=== PATIENT | male | born 1985 | race Caucasian/White ===

== ENCOUNTER 2020-10-11 13:52 | Emergency (ER) | payer MEDICARE, OTHER ==
[2020-10-11] MEDS ORDERED: ERYTHROMYCIN O3.5 GM OS (15:14)
== END 2020-10-11 15:26 | disposition home or self-care (01) ==
LOC: ER1 13:52
DX: H10.212 Acute toxic conjunctivitis, left eye (principal); I10 Essential (primary) hypertension; F17.200 Nicotine dependence, unspecified, uncomplicated; J45.909 Unspecified asthma, uncomplicated; Z88.1 Allergy status to other antibiotic agents; Z88.8 Allergy status to other drugs, medicaments and biological substances
CPT/HCPCS: 99282

== ENCOUNTER → 2021-09-10 | Outpatient (CLI) | payer MEDICARE, OTHER ==
[~2021-09-10] MED LIST: ERYTHROMYCIN O3.5 GM OS
== END ==
LOC: RAD 17:02
DX: R31.9 Hematuria, unspecified (principal)
CPT/HCPCS: 74018

== ENCOUNTER → 2021-10-18 | Outpatient (CLI) | payer MEDICARE, OTHER | LOC: EXRD 10:52 | DX: N39.44 Nocturnal enuresis (principal) | CPT/HCPCS: 76775 ==